=== PATIENT | male | born 1960 | race Caucasian/White ===

== ENCOUNTER 2017-06-10 14:05 | Emergency (ER) | payer OTHER ==
--- NOTE | 2017-06-10 15:11 | EDPHY ---
H & P Stated Complaint: LL ABD PAIN HX DIVERTICULITIS/CARVALHO/NAUSEA Time Seen by Provider: 06/10/17 15:11 HPI/ROS: CHIEF COMPLAINT: Migraine headache, diverticulitis flare HISTORY OF PRESENT ILLNESS: The patient presents to the ED with complaints of an acute typical migraine headache for the past 2 days. The patient reportedly has had a flare of diverticulitis which she has been taking oral Levaquin for the past 2 days for. The patient does report some increasing stress at work which he believes is contributing to his symptoms. The patient denies any history of fever or rectal bleeding. The patient has had vomiting. The patient denies any acute focal numbness or weakness. The patient does use Imitrex intermittently for his pain. REVIEW OF SYSTEMS: A comprehensive 10 point review of systems is otherwise negative aside from elements mentioned in the history of present illness. Source: Patient - Personal History Current Tetanus/Diphtheria Vaccine: Unsure - Medical/Surgical History Hx Asthma: No Hx Chronic Respiratory Disease: No Hx Diabetes: No Hx Cardiac Disease: No Hx Renal Disease: No Hx Cirrhosis: No Hx Alcoholism: No Hx HIV/AIDS: No Hx Splenectomy or Spleen Trauma: No Other PMH: MIGRAINES/DIVERTICULITIS - Social History Smoking Status: Never smoked - Physical Exam Exam: General Appearance: Alert, no distress Eyes: Pupils equal and round no pallor or injection ENT, Mouth: Mucous membranes moist Respiratory: There are no retractions, lungs are clear to auscultation Cardiovascular: Regular rate and rhythm Gastrointestinal: Mild tenderness to palpation left lower quadrant, no peritoneal signs Neurological: A&O, normal motor function, normal sensory exam, normal cranial nerves Skin: Warm and dry, no rashes Musculoskeletal: Neck is supple nontender Extremities: symmetrical, full range of motion Constitutional: Initial Vital Signs Temperature (C) 36.5 C 06/10/17 14:22 Heart Rate 62 06/10/17 14:22 Respiratory Rate 22 H 06/10/17 14:22 Blood Pressure 128/90 H 06/10/17 14:22 O2 Sat (%) 100 06/10/17 14:22 O2 Delivery Mode Room Air Allergies/Adverse Reactions: amoxicillin [From Augmentin] Allergy (Verified 06/10/17 14:22) clavulanic acid [From Augmentin] Allergy (Verified 06/10/17 14:22) Home Medications: Medication Instructions Recorded Ondansetron Odt [Zofran Odt] 4 mg PO Q4PRN PRN #20 tab 06/10/17 Prednisone 06/10/17 levAQUIN 06/10/17 Medical Decision Making - Diagnostics EKG Interpretation: EKG: Complete interpretation has been separately recorded in the [facility] archive. Summary impression: Sinus rhythm, rate 58 ED Course/Re-evaluation: The patient presents to the ED for an acute migraine headache. The patient states this is a very typical migraine for him. He states that is been precipitated by recent bout of diverticulitis and stress at work. The patient was noted to have minimal tenderness on his abdominal exam. He has no evidence of an acute abdomen. The patient had an IV established. He received IV Toradol , Zofran and normal saline. The patient received an additional 50 mcg dose of fentanyl. The patient was re-evaluated several times by myself over a 4 hour period. At 6 :15 p.m. he states his headache is much better. He would like to be discharged home. He will be provided a prescription for Zofran. The patient has been encouraged to continue Tylenol and ibuprofen. The patient will follow up with his primary care provider in 1 week. The patient understands to return to the ED immediately for recurrent severe headache, fever, intractable vomiting, intractable pain or other concerns. The patient has no history of trauma. He has no complaints of neck pain. The patient has nothing to suggest subarachnoid hemorrhage, meningitis or dissection as the etiology of his presentation today Differential Diagnosis: Differential diagnosis considered includes migraine headache, tension headache, diverticulitis, dehydration, metabolic abnormality - Data Points Laboratory Results: Laboratory Results 06/10/17 15:05 06/10/17 15:05 06/10/17 06/10/17 15:05 15:05 WBC 12.34 10^3/uL H 10^3/uL (3.80-9.50) RBC 5.67 10^6/uL 10^6/uL (4.40-6.38) Hgb 17.3 g/dL g/dL (13.7-17.5) Hct 49.6 % % (40.0-51.0) MCV 87.5 fL fL (81.5-99.8) MCH 30.5 pg pg (27.9-34.1) MCHC 34.9 g/dL g/dL (32.4-36.7) RDW 12.8 % % (11.5-15.2) Plt Count 243 10^3/uL 10^3/uL (150-400) MPV 11.0 fL fL (8.7-11.7) Neut % (Auto) 87.5 % H % (39.3-74.2) Lymph % (Auto) 9.2 % L % (15.0-45.0) [place] % (Auto) 2.4 % L % (4.5-13.0) Eos % (Auto) 0.2 % L % (0.6-7.6) Baso % (Auto) 0.3 % % (0.3-1.7) Nucleat RBC Rel Count 0.0 % % (0.0-0.2) Absolute Neuts (auto) 10.79 10^3/uL H 10^3/uL (1.70-6.50) Absolute Lymphs (auto) 1.14 10^3/uL 10^3/uL (1.00-3.00) Absolute Monos (auto) 0.30 10^3/uL 10^3/uL (0.30-0.80) Absolute Eos (auto) 0.02 10^3/uL L 10^3/uL (0.03-0.40) Absolute Basos (auto) 0.04 10^3/uL 10^3/uL (0.02-0.10) Absolute Nucleated RBC 0.00 10^3/uL 10^3/uL (0-0.01) Immature Gran % 0.4 % % (0.0-1.1) Immature Gran # 0.05 10^3/uL 10^3/uL (0.00-0.10) Sodium 138 mEq/L mEq/L (134-144) Potassium 4.5 mEq/L mEq/L (3.5-5.2) Chloride 102 mEq/L mEq/L (97-110) Carbon Dioxide 23 mEq/l mEq/l (22-31) Anion Gap 13 mEq/L mEq/L (8-16) BUN 21 mg/dL mg/dL (7-23) Creatinine 1.0 mg/dL mg/dL (0.7-1.3) Estimated GFR > 60 Glucose 142 mg/dL H mg/dL (70-100) Calcium 10.5 mg/dL H mg/dL (8.5-10.4) Medications Given: Discontinued Medications Fentanyl (Sublimaze) 50 mcg IVP EDNOW ONE Stop: 06/10/17 17:14 Last Admin: 06/10/17 17:19 Dose: 50 mcg Sodium Chloride (Ns) 1,000 mls @ 0 mls/hr IV EDNOW ONE; Wide Open PRN Reason: Protocol Stop: 06/10/17 16:07 Last Admin: 06/10/17 16:24 Dose: 1,000 mls Ketorolac Tromethamine (Toradol) 30 mg IVP EDNOW ONE Stop: 06/10/17 16:08 Last Admin: 06/10/17 16:23 Dose: 30 mg Ondansetron HCl (Zofran) 4 mg IVP EDNOW ONE Stop: 06/10/17 16:07 Last Admin: 06/10/17 16:27 Dose: 4 mg Departure - Departure Disposition: Home, Routine, Self-Care Clinical Impression: Migraine headache, Diverticulitis Condition: Good Instructions: Migraine Headache (ED) Additional Instructions: 1. Take Ibuprofen or Motrin 600 mg by mouth three times a day. 2. Tylenol 650 mg every 6 hours as needed for pain. 3. Zofran every 4 hours as needed for nausea and symptoms of ongoing headache. 4. Please follow-up with your primary care provider as scheduled. 5. Please return to the ED immediately for any worsening headache, fever, neck pain, numbness, weakness, intractable vomiting or other concerns. 6. You have been given the contact number of our on-call neurologist for any persistent symptoms of intermittent migraines. Referrals: BONILLA CARNES [Other] - As per Instructions Blair Mckeon MD [Medical Doctor] - As per Instructions
--- NOTE | 2017-06-10 15:21 | CPEKG ---
Heart Rate: 58 RR Interval: 1034 P-R Interval: 212 QRSD Interval: 94 QT Interval: 412 QTC Interval: 405 P [place]: 45 QRS [place]: 56 T Wave [place]: 36 EKG Severity - ABNORMAL ECG - EKG Impression: SINUS RHYTHM EKG Impression: FIRST DEGREE AV BLOCK Electronically Signed By: Pernell Maldonado 10-Jun-2017 16:27:47
[2017-06-10] MEDS ORDERED: NS 1,000 ML IV ONE (16:06)
[2017-06-10] MEDS ORDERED: ONDANSETRON 4 MG/2 ML VIAL IVP ONE (16:06)
[2017-06-10] MEDS ORDERED: KETOROLAC 30 MG/1 ML SDV IVP ONE (16:07)
[2017-06-10 16:18] LABS: % IMMATURE GRANULYOCYTES 0.4 % (0.0-1.1); ABSOLUTE IMMATURE GRANULOCYTES 0.05 10^3/uL (0.00-0.10); ADD DIFF? NO; ADD MORPH? NO; ADD SCAN? NO; ATYPICAL LYMPHOCYTE FLAG 0 (0-99); FRAGMENT RBC FLAG 0 (0-99); HEMATOCRIT 49.6 % (40.0-51.0); HEMOGLOBIN 17.3 g/dL (13.7-17.5); LEFT SHIFT FLG 0 (0-99); LIPEMIA HEMOLYSIS FLAG 90 (0-99); MEAN CELL HEMOGLOBIN 30.5 pg (27.9-34.1); MEAN CELL HEMOGLOBIN CONCENTR. 34.9 g/dL (32.4-36.7); MEAN CELL VOLUME 87.5 fL (81.5-99.8); PLATELET CLUMPS FLAG 0 (0-99); PLATELET COUNT 243 10^3/uL (150-400); RED BLOOD CELL COUNT 5.67 10^6/uL (4.40-6.38); RED CELL DISTRIBUTION WIDTH 12.8 % (11.5-15.2)
[2017-06-10 16:39] LABS: ANION GAP 13 mEq/L (8-16); CALCIUM 10.5 mg/dL (8.5-10.4); CARBON DIOXIDE 23 mEq/l (22-31); CHLORIDE 102 mEq/L (97-110); GLOMERULAR FILTRATION RATE > 60; GLUCOSE 142 mg/dL (70-100); POTASSIUM 4.5 mEq/L (3.5-5.2); SODIUM 138 mEq/L (134-144)
[2017-06-10] MEDS ORDERED: fentaNYL 100 MCG/2 ML INJ IVP ONE (17:13)
[2017-06-10 18:34] VITALS: BP 131/85; PULSE 80; RESP 16; TEMP 98.2; O2SAT 97
== END 2017-06-10 18:58 | disposition home or self-care (01) ==
DX: G43.909 Migraine, unspecified, not intractable, without status migrainosus (principal); K57.32 Diverticulitis of large intestine without perforation or abscess without bleeding; E86.9 Volume depletion, unspecified
CPT/HCPCS: 96374; J1885; J2405; J3010